=== PATIENT | male | born 1950 | race Caucasian/White ===

== ENCOUNTER 2023-04-07 | Inpatient (IN) | payer MEDICARE | END 2023-04-13 18:12 | disposition home health service (06) | DRG 871 | PROVIDERS: ADMIT Family Medicine | PROC: 3E03329 Introduction of Other Anti-infective into Peripheral Vein, Percutaneous Approach (ICD-10-PCS; principal; 2023-04-07) | PROC: 4A133R1 Monitoring of Arterial Saturation, Peripheral, Percutaneous Approach (ICD-10-PCS; 2023-04-07) | PROC: 5A09357 Assistance with Respiratory Ventilation, Less than 24 Consecutive Hours, Continuous Positive Airway Pressure (ICD-10-PCS; 2023-04-07) | DX: A41.9 Sepsis, unspecified organism (principal); E43 Unspecified severe protein-calorie malnutrition; J69.0 Pneumonitis due to inhalation of food and vomit; G93.41 Metabolic encephalopathy; J18.9 Pneumonia, unspecified organism; J96.21 Acute and chronic respiratory failure with hypoxia; J44.1 Chronic obstructive pulmonary disease with (acute) exacerbation; B01.9 Varicella without complication; J44.0 Chronic obstructive pulmonary disease with (acute) lower respiratory infection; F11.23 Opioid dependence with withdrawal; F15.23 Other stimulant dependence with withdrawal; D50.9 Iron deficiency anemia, unspecified; R13.10 Dysphagia, unspecified; B19.20 Unspecified viral hepatitis C without hepatic coma; R53.81 Other malaise; I25.10 Atherosclerotic heart disease of native coronary artery without angina pectoris; Z80.1 Family history of malignant neoplasm of trachea, bronchus and lung; Z79.82 Long term (current) use of aspirin; Z79.2 Long term (current) use of antibiotics; Z79.899 Other long term (current) drug therapy; Z11.52 Encounter for screening for COVID-19; Z98.890 Other specified postprocedural states; Z87.891 Personal history of nicotine dependence; Z68.20 Body mass index [BMI] 20.0-20.9, adult ==

== ENCOUNTER 2023-05-03 11:46 | Inpatient (IN) | payer MEDICARE ==
[2023-05-03] MEDS ORDERED: Albuterol 2.5 MG (0.5 mL) NEB ONE (12:37)
[2023-05-03] MEDS ORDERED: Ipratropium Bromide 2.5 ml Neb ONE (12:38)
[2023-05-03 12:58] LABS: #Basophils 0.1 10x3/uL (0.0-0.2); #Eosinphils 0.8 10x3/uL (0.0-0.5); #Monocytes 1.5 10x3/uL (0.0-1.1); #Neutrophils 9.4 10x3/uL (1.5-8.4); %Basophils 0.9 % (0.0-2.0); %Eosinophils 5.6 % (0.0-6.0); %Lymphocytes 14.5 % (18.0-47.0); %Monocytes 10.8 % (0.0-10.0); %Neutrophils 67.2 % (40.0-75.0); Hematocrit 34.6 % (38.8-50.0); Hemoglobin 11.6 g/dL (13.5-17.5); Mean Corpuscular HGB CONC 33.5 g/dL (32.0-36.0); Mean Corpuscular Hemoglobin 31.7 pg (27.0-33.0); Mean Corpuscular Volume 94.5 fl (81.2-95.1); Mean Platelet Volume 10.5 fl (7.4-10.4); Platelet Count 406 10x3/uL (150-450); RBC Distribution Width 15.8 % (11.5-14.5); Red Blood Cell (RBC) Count 3.66 10x6/uL (4.32-5.72)
[2023-05-03 13:06] LABS: Anion Gap 13 mmol/L (10-20); BUN (Urea Nitrogen) 38 mg/dL (8.4-25.7); Calc. Creatinine Clearance 0 mL/min (70-130); Carbon Dioxide 29 mmol/L (23-31); Chloride 100 mmol/L (98-107); Potassium 4.2 mmol/L (3.5-5.1); Sodium 138 mmol/L (136-145)
[2023-05-03 13:07] LABS: ALT (SGPT) 35 U/L (8-55); AST (SGOT) 48 U/L (5-34); Albumin 3.3 g/dL (3.4-4.8); Alkaline Phosphatase 54 U/L (40-110); Bilirubin, Total 0.3 mg/dL (0.2-1.2); Estimated GFR 76; Globulin 3.6 g/dL (2.4-3.5); Glucose 108 mg/dL (80-115); Protein, Total 6.9 g/dL (5.8-8.1)
[2023-05-03 13:12] LABS: Troponin I Less than 0.010 ng/mL (< 0.028)
[2023-05-03 14:09] LABS: Influenza A by NAA Not Detected (NotDetected); Influenza B by NAA Not Detected (NotDetected); SARS-CoV-2 NAA Rapid Test Not Detected (NotDetected)
[2023-05-03] MEDS ORDERED: Cefepime 2 GM VIAL ONE (15:01)
[2023-05-03] MEDS ORDERED: methylPREDNISolone Sod Succ/PF 125 MG/2 ML VIAL ONE (15:38)
[2023-05-03] MEDS ORDERED: Vancomycin 1 GM VIAL ONE (16:14)
[2023-05-03 16:15] LABS: Bilirubin Neg (Negative); Blood, Urine Negative (Negative); Clarity Slightly Cloudy (Clear); Glucose, Urine (Dipstick) Normal (Negative); Ketone, Urine Negative (Negative); Leukocyte 500 (Negative); Nitrite Negative (Negative); Protein, Urine (Dipstick) 30 mg/dl (Neg-Trace); Specific Gravity, Urine 1.005 (1.005-1.030); Urobilinogen Normal mg/dL (Less than 2)
[2023-05-03 16:29] LABS: Bacteria/HPF Rare-Few HPF (None Seen); CAUTI Indications for Culture Dysuria,urgency,freq; RBC/HPF 0-3 HPF (0-3); Squamous Epithelial 0-3 HPF (0-3)
[2023-05-03 16:32] LABS: Urine Culture Reflex No No
[2023-05-03] MEDS ORDERED: Acetaminophen 650 MG Suppository PR PRN (16:51)
[2023-05-03] MEDS ORDERED: Ipratropium/Albuterol 3 ML NEB NEB PRN (17:18)
[2023-05-03] MEDS ORDERED: Acetaminophen 650 MG/20.3 ML UDCUP PO PRN (19:12)
[2023-05-03] MEDS: Arformoterol 15 MCG/2 ML NEB NEB SCH (21:00)
[2023-05-03] MEDS: Ipratropium/Albuterol 3 ML NEB NEB SCH (21:00)
[2023-05-03] MEDS: valACYclovir 500 MG TAB PO SCH (22:18)
[2023-05-03] MEDS: Azithromycin 500 MG in Sodium Chloride 0.9% 250 ML 250 ML IVPB SCH (22:20)
[2023-05-03] MEDS: Atorvastatin Calcium 40 MG TAB PER TUBE SCH (22:20)
[2023-05-03] MEDS: Cefepime 2 GM in Sodium Chloride 0.9% 100 ML IVPB SCH (23:18)
[2023-05-04 03:44] LABS: #Monocytes 0.2 10x3/uL (0.0-1.1); #Neutrophils 9.2 10x3/uL (1.5-8.4); %Basophils 0.3 % (0.0-2.0); %Lymphocytes 9.5 % (18.0-47.0); %Monocytes 1.6 % (0.0-10.0); %Neutrophils 87.5 % (40.0-75.0); Hematocrit 31.2 % (38.8-50.0); Hemoglobin 10.7 g/dL (13.5-17.5); Mean Corpuscular HGB CONC 34.3 g/dL (32.0-36.0); Mean Corpuscular Hemoglobin 32.2 pg (27.0-33.0); Mean Platelet Volume 10.6 fl (7.4-10.4); Platelet Count 372 10x3/uL (150-450); RBC Distribution Width 15.9 % (11.5-14.5); Red Blood Cell (RBC) Count 3.32 10x6/uL (4.32-5.72); White Blood Cell (WBC) Count 10.5 10x3/uL (3.5-10.5)
[2023-05-04 03:59] LABS: Anion Gap 15 mmol/L (10-20); BUN (Urea Nitrogen) 33 mg/dL (8.4-25.7); Calc. Creatinine Clearance 61 mL/min (70-130); Calcium 9.1 mg/dL (7.8-10.44); Carbon Dioxide 26 mmol/L (23-31); Chloride 103 mmol/L (98-107); Estimated GFR 93; Glucose 132 mg/dL (80-115); Potassium 4.8 mmol/L (3.5-5.1); Sodium 139 mmol/L (136-145)
[2023-05-04] MEDS ORDERED: Senokot 8.6 MG TAB PO PRN (05:58)
[2023-05-04] MEDS: Arformoterol 15 MCG/2 ML NEB NEB SCH (07:10)
[2023-05-04] MEDS: Budesonide 0.5 MG/2 ML NEB NEB SCH (07:15)
[2023-05-04] MEDS: Sodium Chloride 0.9% 1,000 ML IV SCH (10:24)
[2023-05-04] MEDS: Cefepime 2 GM in Sodium Chloride 0.9% 100 ML IVPB SCH (10:24)
[2023-05-04] MEDS: methylPREDNISolone Sod Succ/PF 125 MG/2 ML VIAL IVP SCH (10:26)
[2023-05-04] MEDS: Enoxaparin 30 MG (0.3 mL) SYRINGE SC SCH (10:26)
[2023-05-04] MEDS: Aspirin Chewable 81 MG TAB PER TUBE SCH (10:26)
[2023-05-04] MEDS: OLANZapine 2.5 MG TAB PO SCH (10:27)
[2023-05-04] MEDS: FLU VACC QS2023(65UP)/MF59C/PF 60 MCG/0.5 ML SYRINGE IM ONE (10:43)
[2023-05-04] MEDS: Enoxaparin 40 MG (0.4 mL) SYRINGE SC SCH (10:45)
[2023-05-04] MEDS ORDERED: Hydrocodone-Acetamin 15 ML UDCUP PER TUBE PRN (13:57)
[2023-05-04] MEDS: Morphine IR 10 MG/5 ML UDCUP PER TUBE PRN (14:34)
[2023-05-05 00:57] VITALS: BMI 18.5
[2023-05-05 03:47] LABS: Anion Gap 13 mmol/L (10-20); BUN (Urea Nitrogen) 42 mg/dL (8.4-25.7); Calc. Creatinine Clearance 68 mL/min (70-130); Calcium 8.6 mg/dL (7.8-10.44); Carbon Dioxide 25 mmol/L (23-31); Chloride 103 mmol/L (98-107); Estimated GFR 95; Glucose 115 mg/dL (80-115); Sodium 136 mmol/L (136-145)
[2023-05-05 03:55] LABS: Band 6 % (5-11); Lymphocytes 6 % (21-51); Monocytes 5 % (0-10); Neutrophil 83 % (42-75)
[2023-05-05 03:56] LABS: RBC Morph Comment Within Normal Limits
[2023-05-05 03:57] LABS: Platelet Adequacy Comment Appears Adequate
[2023-05-05 03:58] LABS: Hematocrit 29.6 % (38.8-50.0); Hemoglobin 10.1 g/dL (13.5-17.5); Mean Corpuscular HGB CONC 34.1 g/dL (32.0-36.0); Mean Corpuscular Hemoglobin 32.2 pg (27.0-33.0); Mean Corpuscular Volume 94.3 fl (81.2-95.1); Mean Platelet Volume 10.7 fl (7.4-10.4); Platelet Count 382 10x3/uL (150-450); RBC Distribution Width 15.9 % (11.5-14.5); Red Blood Cell (RBC) Count 3.14 10x6/uL (4.32-5.72); White Blood Cell (WBC) Count 27.6 10x3/uL (3.5-10.5)
[2023-05-05 05:40] VITALS: TEMP 98
[2023-05-05] MEDS: Enoxaparin 30 MG (0.3 mL) SYRINGE SC SCH (08:35)
[2023-05-05 13:00] VITALS: BP 104/56
== END 2023-05-05 16:01 | disposition home or self-care (01) | DRG 178 ==
LOC: CSHERS 11:46 → SUATTDRO 11:46 → CSHTELE 17:51 → OBSVTOIN 05-04 14:56 → CSHIMCU 05-04 19:27 → CSHTELE 05-05 07:14
PROVIDERS: ADMIT Family Medicine; ATTEND Internal Medicine
DX: J69.0 Pneumonitis due to inhalation of food and vomit (principal); J44.1 Chronic obstructive pulmonary disease with (acute) exacerbation; F15.10 Other stimulant abuse, uncomplicated; I25.10 Atherosclerotic heart disease of native coronary artery without angina pectoris; B19.20 Unspecified viral hepatitis C without hepatic coma; B02.9 Zoster without complications; G50.0 Trigeminal neuralgia; Z99.81 Dependence on supplemental oxygen; Z79.899 Other long term (current) drug therapy; Z87.891 Personal history of nicotine dependence; Z79.82 Long term (current) use of aspirin
CPT/HCPCS: 36415; 71045; 71275; 80048; 80053; 81001; 83605; 83880; 84145; 84484; 85025; 87040; 93005; 94640; 94760; 94762; 96361; 96365; 96367; 96372; 96375; 96376; G0378; J0456; J0692; J1650; J2930; J3370; J3490; J7050; J7611; J7620; J7626